=== PATIENT | male | born 1955 | race Two or more races ===

== ENCOUNTER 2022-03-21 08:44 | Emergency (ER) | payer OTHER ==
[~2022-03-21] VITALS: Ht 170.2 cm; Wt 81.2 kg
[~2022-03-21 08:44] MED LIST: ALLOPURINOL100 MG PO; BENZONATATE200 MG PO; DICLOFENAC SODI50 MG PO; HYDROCHLOROTHIA25 MG PO; IRON325 M1 PO; LISINOPRIL20 MG PO; LISINOPRIL5 MG PO; NAPROXEN500 MG PO; NEURONTIN300 MG PO; OXYCODONE HCL5 MG PO; PROAIR HFA8.5 GM INH; PROMETHAZINE-COD5 ML PO; SIMVASTATIN80 MG PO; VITAMIN C500 M5 PO
[2022-03-21] MEDS ORDERED: HYDROCODON-ACE1 EA10 PO (13:29)
[2022-03-21] MEDS ORDERED: AMOX TR-K CLV1 EAC1 PO (13:29)
== END 2022-03-21 13:41 | disposition home or self-care (01) ==
LOC: ED 08:44
DX: K57.92 Diverticulitis of intestine, part unspecified, without perforation or abscess without bleeding (principal); I10 Essential (primary) hypertension; E78.5 Hyperlipidemia, unspecified; Z79.899 Other long term (current) drug therapy
CPT/HCPCS: 36415; 74177; 80053; 81001; 83690; 85025; 99284-25; J2405; Q9967

== ENCOUNTER 2022-04-05 12:45 | Emergency (ER) | payer OTHER ==
[~2022-04-05] VITALS: Ht 170.2 cm; Wt 82.5 kg
[~2022-04-05 12:45] MED LIST changes: +AMOX TR-K CLV1 EAC1 PO; +HYDROCODON-ACE1 EA10 PO
--- OUTSIDE RECORDS SUMMARY | 2022-04-05 12:48 | XMS ---
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 Johan VISIT COUNT (12 MO.) [address] TOTAL 6 NOTE: Visits indicate total known visits. ED/UCC VISIT TRACKING (12 MO.) 04/05/2022 12:46 [facility] TYPE: Emergency COMPLAINT: - ABD PAIN 04/01/2022 02:23 [facility] TYPE: Emergency DIAGNOSES: - Abdominal Pain 03/25/2022 10:19 [facility] TYPE: Emergency DIAGNOSES: - Gastritis, unspecified, without bleeding - Abdominal Pain - Epigastric pain 03/22/2022 08:41 [facility] TYPE: Emergency DIAGNOSES: - Generalized abdominal pain - Nausea - Abdominal Pain 03/21/2022 08:45 [facility] [place] TYPE: Emergency COMPLAINT: - ABD PAIN, N/V/D DIAGNOSES: - Diverticulitis of intestine, part unspecified, without perforation or abscess without bleeding - Hyperlipidemia, unspecified - Essential (primary) hypertension - Left lower quadrant pain - Other 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
[2022-04-05] MEDS ORDERED: HYDROCHLOROTHIA25 MG PO (13:04)
[2022-04-05] MEDS ORDERED: ACID-PEP20 MG PO (13:05)
[2022-04-05] MEDS ORDERED: SUCRALFATE1 GM/10 ML PO (13:05)
== END 2022-04-05 14:20 | disposition home or self-care (01) ==
LOC: ED 12:45
DX: R10.9 Unspecified abdominal pain (principal); R63.4 Abnormal weight loss; I10 Essential (primary) hypertension; E78.5 Hyperlipidemia, unspecified; Z79.899 Other long term (current) drug therapy
CPT/HCPCS: 36415; 80053; 81001; 83690; 85025; 99284

== ENCOUNTER 2022-05-09 09:48 | Day surgery (SDC) | payer OTHER ==
[~2022-05-09] VITALS: Ht 167.6 cm; Wt 82.7 kg
[~2022-05-09 09:48] MED LIST changes: +ACID-PEP20 MG PO; +LANSOPRAZOLE30 MG PO; +SUCRALFATE1 GM/10 ML PO
[2022-05-09] MEDS ORDERED: LISINOPRIL20 MG PO (10:11)
--- NOTE | 2022-05-09 12:46 | NUR ---
05/09/22 1246 Donna Tate PT TO PACU SLEEPY BUT WAKE TO VERBAL STIMULI
--- NOTE | 2022-05-09 14:37 | NUR ---
1000: THIS RN IN PATIENT ROOM TO START CHECK IN PROCESS. OFFERED PATIENT AND FAMILY TO USE FIRE MARSHAL REFINERY PHONE. PATIENT AND FAMILY BOTH DECLINED FIRE MARSHAL REFINERY PHONE AND CHOOSE TO HAVE DAUGHTER INTERPRET FOR PATIENT. 1049: PATIENT BEGAN RECEIVING IV ANCEF VIA SLOW IVP. 1054: RN NOTICED PATIENT BEGAN CLEARING THROAT AND COUGHING. RN ASKED DAUGHTER TO ASK PATIENT ABOUT COUGH. PATIENT SAID THIS STARTED SUDDENLY. PATIENT STATES THROAT FEELS "RASPY." PATIENT CONTINUES TO COUGH. SUDDEN ONSET OF NAUSEA. THEN RESTLESSNESS. MOVING AROUND IN BED, SITTING ON SIDE OF BED. ANCEF INFUSION ABRUPTLY STOPPED. PATIENT RECEIVED 12 MLs OF 20 MLs TOTAL OF ANCEF. 1057: DR. GARRETT NOTIFIED OF PATIENT'S ACUTE SYMPTOMS AFTER STARTING THE INFUSION OF ANCEF. DR. GARRETT IN ROOM WITH PATIENT. VERBAL ORDER FOR 100 MG OF HYDROCORTISONE. PATIENT TACHYCARDIC. O2 SATs 98 - 100% ON ROOM AIR. PATIENT HAD EPISODE OF EMESIS. CONTINUES TO BE RESTLESS WITH INCREASED RESPIRATORY RATE, THROAT IRRITATION AND COUGH. 1100: HYDROCORTISONE GIVEN. PATIENT ON CONTINUOUS PULSE OX. MAINTAINING O2 SATs ON ROOM AIR. CONTINUES TO BE TACHYCARDIC. BP HIGH. PATIENT FACE RED. INCREASED RESPIRATORY RATE. DR. GARRETT STILL AT BEDSIDE. RN AT BEDSIDE WELL. 1105: PATIENT STARTING TO FEEL BETTER PER DAUGHTER. PATIENT STATES FEELS COLD. SHAKING. PATIENT COVERED WITH WARM BLANKETS. PATIENT CONTINUES TO MAINTAIN O2 SATs ON ROOM AIR. PATIENT LAYING DOWN IN BED. FAMILY AT BEDSIDE. DR. GARRETT OR THIS RN AT BEDSIDE CONTINUOUSLY DURING THIS TIME. 1110: PATIENT CONTINUES TO STATE HE IS FEELING BETTER. SHAKING GONE. PATIENT STATES NOT FEELING COLD ANY MORE. MAINTAINING O2 SATs ON ROOM AIR VIA CONTINUOUS PULSE OX. RN AT BEDSIDE CONTINUOUSLY. 1115: PATIENT STATES DOING WELL PER DAUGHTER. FAMILY AT BEDSIDE. RN OUT OF ROOM. FAMILY AND PATIENT EDUCATED TO NOTIFY STAFF RIGHT AWAY WITH ANY CHANGES. CALL LIGHT WITHIN REACH. 1120: CHECKED PATIENT. PATIENT CONTINUES TO DO WELL. NO SIGNS/SYMPTOMS OF REACTION AT THIS TIME. FAMILY REMAINS AT BEDSIDE. PATIENT ON CONTINUOUS PULSE OX. 1130: CHECKED PATIENT. MAINTAINING O2 SATs PER CONTINUOUS PULSE OX. HR AND BP CLOSE TO VALUES AT CHECK IN. PATIENT ASSISTED OOB AND TO BATHROOM. GAIT STEADY TO AND FROM BATHROOM. 1140: PATIENT TAKEN TO PROCEDURE.
--- NOTE | 2022-05-09 15:34 | NUR ---
LATE ENTRY 1214: DR. GARRETT IN TO CHECK ON PATIENT. WILL PROCEED WITH PROCEDURE. LATE ENTRY 1230: PATIENT TAKEN BACK FOR PROCEDURE.
--- NOTE | 2022-05-10 10:58 | OR ---
[facility] [address] [place], [place] [address] Signed DATE OF OPERATION: 05/09/2022 SURGEON: Alvaro Garrett MD PREOPERATIVE DIAGNOSIS: History of symptomatic H. pylori status post treatment. POSTOPERATIVE DIAGNOSES: 1. Antral and duodenal inflammation without sign of ulceration. 2. Small hiatal hernia with chronic distal esophagitis. PROCEDURE: Esophagogastroduodenoscopy with biopsy. ANESTHESIA: Intravenous sedation, fentanyl 100 mcg and Versed 5 mg. PREOPERATIVE DOSING: Ancef. INDICATION: This 66-year-old man, who is a patient of GOMEZ Ontiveros. He lives in [place], [place]. He was treated for symptomatic H pylori with appropriate antibiotics and PPI medication. He has had recurrence of upper abdominal pain. He is currently taking an H2 julissa. He was seen in the emergency room on March 21, 2022, with complaint of left lower abdominal pain and nausea and diarrhea for [address] was performed showing diverticulosis and no sign of inflammation. He has no associated hematemesis or dysphagia. He has a history of hip replacement as well as other joint replacement therapy in the past. His current medications have included recently amoxicillin, clarithromycin, and lansoprazole. He is admitted at this time to undergo upper endoscopy to better characterize the source of his epigastric pain. He understands risk of bleeding, infection, and perforation related to upper endoscopy and wished to proceed. FINDINGS: He was given preoperative Ancef antibiotic in the day surgery area, which caused relatively prompt initiation of nausea, vomiting, and so forth. On that basis, he was treated with hydrocortisone 100 mg IV. In time, his symptoms settled. He is not known to have allergy to any medication including Ancef. He would definitely be considered likely to have symptomatic reaction to Ancef. In any case, 1.5 g of Ancef had been Electronically Signed By: ALVARO GARRETT MD 05/10/22 1058 PATIENT NAME: GEORGINA HERNANDEZ OPERATIVE REPORT DATE OF : 51 REPORT #: [id number] PHYSICIAN: ALVARO GARRETT MD PCP: CADE FUENTES REPORT IS CONFIDENTIAL AND NOT TO BE RELEASED WITHOUT AUTHORIZATION [facility] [address] [place], [place] [address] Signed given. On upper endoscopy, he was found to have mild chronic distal esophagitis without signs of Wise's epithelium. A small hiatal hernia was noted. There was antral gastritis and duodenitis, but no sign of ulceration. CLOtest 20 minutes post procedure is negative though final results are pending. DESCRIPTION OF PROCEDURE: The patient was brought to the endoscopy suite, given topical Hurricaine hypopharyngeal anesthesia and given intravenous sedation to point of slurred speech and nystagmus with full cardiopulmonary monitoring. A bite block was placed. An Olympus video upper endoscope was passed by hypopharynx and into the esophagus throughout its length. The esophagus was normal, except in the distal portion where there was mild chronic inflammation. There was no sign of Wise's epithelium. Scope was advanced to the stomach, which was insufflated with air. Secretions were withdrawn. There was no sign of bile. The antrum appeared mildly inflamed. The pylorus was normal. Scope was passed through into the duodenum. The 2nd and 3rd portion of the duodenum were normal, though the bulbar portion was somewhat inflamed. Biopsies were obtained. The scope was withdrawn. A biopsy was then taken of the antrum. Retroflexed view was undertaken showing mild chronic gastritis proximally. Biopsies were taken for CLOtest. The scope was also manipulated to allow for visualization of small hiatal hernia. Rugal folds were otherwise normal. There was no sign of polyps or neoplasm or ulceration. Scope withdrawn to the distal esophagus. Biopsies were obtained there as well as the mid esophagus. The scope was removed and the patient was taken to the recovery room in good condition. CONCLUDING DIAGNOSIS: Persistent antral gastritis and duodenitis and small hiatal hernia with distal chronic esophagitis. PLAN: We will recommend Prilosec 20 mg p.o. daily. We will assess his pathology reports. We will see him back in the office in 4-6 weeks and see if his epigastric pain has resolved. If not, consideration might be made for biliary evaluation. MD ARAMIS Heath/MODL Electronically Signed By: ALVARO GARRETT MD 05/10/22 1058 PATIENT NAME: GEORGINA HERNANDEZ OPERATIVE REPORT DATE OF : 51 REPORT #: [id number] PHYSICIAN: ALVARO GARRETT MD PCP: CADE FUENTES REPORT IS CONFIDENTIAL AND NOT TO BE RELEASED WITHOUT AUTHORIZATION [address] [address] Signed /[id number] cc: GOMEZ Ontiveros [facility] Copies: ~ Electronically Signed By: ALVARO GARRETT MD 05/10/22 1058 PATIENT NAME: GEORGINA HERNANDEZ OPERATIVE REPORT DATE OF : 51 REPORT #: [id number] PHYSICIAN: ALVARO GARRETT MD PCP: CADE FUENTES REPORT IS CONFIDENTIAL AND NOT TO BE RELEASED WITHOUT AUTHORIZATION
--- NOTE | 2022-05-10 15:29 | PATH ---
[facility] [address] [place], [place] [address] Signed SPECIMEN(S): A DUODENAL BIOPSY SPECIMEN(S): B ANTRUM/PYLORUS BIOPSY SPECIMEN(S): C LOWER ESOPHAGEAL BIOPSY SPECIMEN(S): D MIDDLE ESOPHAGEAL BIOPSY SPECIMEN SOURCE: A. DUODENAL BIOPSY B. ANTRUM/PYLORUS BIOPSY C. LOWER ESOPHAGEAL BIOPSY D. MIDDLE ESOPHAGEAL BIOPSY CLINICAL HISTORY: EGD. Abdominal pain, nausea/diarrhea, H. pylori infection, hiatal hernia, antral gastritis, duodenitis, distal esophagitis. FINAL PATHOLOGIC DIAGNOSIS: A. Duodenal biopsy: - Benign duodenal mucosa, negative for specific diagnostic abnormality. B. Antrum / pylorus biopsy: - Superficial mild chronic gastritis. - A Helicobacter pylori immunostain is negative for organisms. C. Lower esophageal biopsy: - Benign esophageal mucosa, negative for increased epithelial eosinophils. - Negative for glandular mucosa. D. Middle esophageal biopsy: - Benign esophageal mucosa, negative for increased epithelial eosinophils. MICROSCOPIC EXAMINATION: Histologic sections of all submitted blocks are examined by light microscopy. These findings, together with the gross examination, support the pathologic diagnosis. A Helicobacter pylori immunostain is performed with appropriate positive and negative controls on block (B1) and is negative for organisms. GROSS DESCRIPTION: Four specimens are received in four containers, labeled "DR." A. The specimen, labeled "DR, duodenum biopsy," is received in formalin and consists of one hussein soft tissue fragment that measures 0.2 cm in greatest dimension. The specimen is entirely submitted in cassette (A1). B. The specimen, labeled "DR, antrum biopsy," is received in formalin and PATIENT NAME: GEORGINA HERNANDEZ PATHOLOGY DATE OF : 51 REPORT #: [id number] PHYSICIAN: [employer] [facility]Y PCP: CADE FUENTES REPORT IS CONFIDENTIAL AND NOT TO BE RELEASED WITHOUT AUTHORIZATION [facility] [address] [place], [place] [address] Signed consists of two hussein soft tissue fragments that measure 0.2-0.4 cm in greatest dimension. The specimen is entirely submitted in cassette (B1). C. The specimen, labeled "DR, lower biopsy," is received in formalin and consists of four hussein soft tissue fragments that measure 0.1-0.2 cm in greatest dimension. The specimen is entirely submitted in cassette (C1). D. The specimen, labeled "DR, middle esophagus biopsy," is received in formalin and consists of one hussein soft tissue fragment that measures 0.6 cm in greatest dimension. The specimen is entirely submitted in cassette (D1). JS (under the direct supervision of a pathologist) The Gross Description was prepared using a voice recognition system. The report was reviewed for accuracy; however, sound-alike word errors, addition and/or deletions may occur. If there is any question about this report, please contact Client Services. PERFORMING LABORATORY: The technical component was performed by [employer] [address] [place] [id number] (CLIA# [id number]). Professional interpretation was performed by [facility], [address] [place] [id number] (CLIA#: [id number]). Diagnostician: Krishna Pierce MD Pathologist Electronically Signed 05/10/2022 Copies: ~ PATIENT NAME: DONNA GARCIAGEORGINA PATHOLOGY DATE OF : 51 REPORT #: [id number] PHYSICIAN: CHANDU MOBLEY PCP: CADE FUENTES REPORT IS CONFIDENTIAL AND NOT TO BE RELEASED WITHOUT AUTHORIZATION
== END 2022-05-09 13:25 | disposition home or self-care (01) ==
LOC: OPS 09:48 → DS 09:50 → OPS 11:00 → DS 12:00 → OPS 13:25
PROVIDERS: ATTEND Surgery
PROC: 0DB68ZX Excision of Stomach, Via Natural or Artificial Opening Endoscopic, Diagnostic (ICD-10-PCS; principal; 2022-05-09 11:00)
DX: K29.50 Unspecified chronic gastritis without bleeding (principal); R10.13 Epigastric pain; K29.80 Duodenitis without bleeding; K44.9 Diaphragmatic hernia without obstruction or gangrene; Z96.649 Presence of unspecified artificial hip joint; Z96.659 Presence of unspecified artificial knee joint; K20.90 Esophagitis, unspecified without bleeding
CPT/HCPCS: 99153; G0500; J0690; J1720; J2250; J3010; J7121